=== PATIENT | female | born 1985 ===

== ENCOUNTER 2023-12-17 06:00 | Day surgery (SDC) | payer OTHER ==
[2023-12-17] MEDS ORDERED: MEPERIDINE HCL/PF 50 MG/ML VIAL IV ONE (07:45)
[2023-12-17] MEDS ORDERED: DIPHENHYDRAMINE HCL 50 MG/ML VIAL 1ML IV ONE ×2 (07:45→08:15)
[2023-12-17] MEDS ORDERED: MIDAZOLAM HCL/PF 5 MG/ML VIAL IV ONE (07:45)
[2023-12-17] MEDS ORDERED: MIDAZOLAM HCL 2 MG/2 ML VIAL IV PUSH ONE (08:15)
== END 2023-12-17 10:30 | disposition home or self-care (01) ==
LOC: AMB-ENDOS 06:00
PROVIDERS: ATTEND Surgery
DX: K29.00 Acute gastritis without bleeding (principal); K44.9 Diaphragmatic hernia without obstruction or gangrene; E66.01 Morbid (severe) obesity due to excess calories